=== PATIENT | male | born 1975 | race Caucasian/White ===

== ENCOUNTER 2017-06-03 13:29 | Inpatient (IN) | payer SELFPAY ==
[2017-06-03] VITALS (14 sets, daily range): BP systolic 105–125; BP diastolic 61–77; PULSE 87–108; TEMP 97.8–98
[~2017-06-03] VITALS: Ht 182.9 cm; Wt 67.9 kg
[~2017-06-03 13:29] MED LIST: DICLOXACILLIN250 MG PO; NO HOME MEDICATIONS
[2017-06-03] MEDS ORDERED: PLAVIX 75MG TAB75 MG PO (13:34)
[2017-06-03 14:09] LABS: HEMATOCRIT 49.3 % (42.0-52.0); HEMOGLOBIN 17.3 g/dl (13.5-18.0); MEAN CELL VOLUME 88 fl (80.0-100.0); MEAN CORPUSCULAR HEMOGLOBIN 31 pg (27.0-31.0); MEAN CORPUSCULAR HGB CONC 35 g/dl (33.0-37.0); PLATELET COUNT 273 K/mm3 (130-400); RED BLOOD COUNT 5.59 M/mm3 (4.20-5.60)
[2017-06-03 14:12] LABS: ADJUSTED CALCIUM 9.3 mg/dL (8.4-10.2); BILIRUBIN,TOTAL 0.8 mg/dL (0.0-1.0); CALCIUM 10.1 mg/dL (8.4-10.2); CREATININE, serum 0.92 mg/dL (0.66-1.25); TOTAL PROTEIN 8.4 gm/dL (6.4-8.2)
[2017-06-03 14:22] LABS: ADD PATHOLOGY DIFF REVIEW NO; WHITE BLOOD COUNT 19.9 K/mm3 (4.8-10.8)
[2017-06-03 14:45] LABS: BAND 12 % (0-10); NEUTROPHILS 77 % (42.0-75.2); PLATELET ESTIMATE NORMAL (NORMAL); TOTAL CELLS COUNTED 100
[2017-06-03] MEDS ORDERED: COLACE 100100 MG/CAP PO (17:39)
[2017-06-03] MEDS ORDERED: AMOXICILLIN 8751 TAB PO (17:39)
[2017-06-03] MEDS ORDERED: IBU600 MG PO (17:40)
[2017-06-03] MEDS ORDERED: PERCOCET 325 MG1 TA2 PO (17:40)
[2017-06-04 02:40] VITALS: BP 107/66; PULSE 96; TEMP 98.3
[2017-06-04 06:27] VITALS: BP 103/63; PULSE 83; TEMP 98.5
[2017-06-04 07:10] LABS: MEAN CELL VOLUME 91 fl (80.0-100.0); MEAN CORPUSCULAR HGB CONC 34 g/dl (33.0-37.0); MEAN PLATELET VOLUME 10.3 fl (7.4-10.4); PLATELET COUNT 232 K/mm3 (130-400); RED BLOOD COUNT 4.86 M/mm3 (4.20-5.60); REDCELL DISTRIBUTION WIDTH-CV 12.3 % (11.5-14.5); WHITE BLOOD COUNT 14.3 K/mm3 (4.8-10.8)
[2017-06-04 07:22] LABS: ADD PATHOLOGY DIFF REVIEW NO; HEMOGLOBIN 14.8 g/dl (13.5-18.0); MEAN CORPUSCULAR HEMOGLOBIN 30 pg (27.0-31.0)
[2017-06-04 07:23] LABS: ALBUMIN 3.9 gm/dL (3.5-5.0); CREATININE, serum 0.9 mg/dL (0.66-1.25); PHOSPHOROUS 3.2 mg/dL (2.5-4.5)
[2017-06-04 08:52] VITALS: BP 108/70; PULSE 84; TEMP 97
[2017-06-04 13:01] VITALS: BP 122/73; PULSE 76; TEMP 97.6
[2017-06-04 14:22] LABS: BAND 57 % (0-10); METAMYELOCYTE 3 % (0-0); NEUTROPHILS 33 % (42.0-75.2); TOTAL CELLS COUNTED 100
[2017-06-04 14:23] LABS: PLATELET ESTIMATE NORMAL (NORMAL)
[2017-06-04 16:18] VITALS: BP 120/74; PULSE 86; TEMP 98.8
[2017-06-04 22:21] VITALS: BP 119/78; PULSE 89; TEMP 99
[2017-06-05 06:23] VITALS: BP 132/80; PULSE 87; TEMP 98.3
[2017-06-05 08:56] VITALS: BP 121/77; PULSE 90; TEMP 97.5
[2017-06-05 12:43] LABS: CREATININE, serum 0.84 mg/dL (0.66-1.25); POTASSIUM 3.9 mmol/L (3.4-5.0)
[2017-06-05 13:40] VITALS: BP 138/87; PULSE 75; TEMP 98
[2017-06-05 22:37] VITALS: BP 110/71; PULSE 86; TEMP 99.1
[2017-06-06 05:55] VITALS: BP 123/76; PULSE 81; TEMP 98.4
[2017-06-06 09:08] VITALS: BP 122/81; PULSE 76; TEMP 98.3
[2017-06-06] MEDS ORDERED: PERCOCET 325 MG1 TA3 PO ×2 (10:52→11:08)
[2017-06-06] MEDS ORDERED: COLACE 100100 MG/CAP PO (11:08)
== END 2017-06-06 12:25 | disposition home or self-care (01) | DRG 340 ==
LOC: COL.ER 13:29 → SURG 16:22
PROVIDERS: Emergency Medicine; Surgery
PROC: 0DTJ4ZZ Resection of Appendix, Percutaneous Endoscopic Approach (ICD-10-PCS; principal; 2017-06-03 17:00)
DX: K35.2 Acute appendicitis with generalized peritonitis (principal); I25.10 Atherosclerotic heart disease of native coronary artery without angina pectoris; I10 Essential (primary) hypertension; Z87.891 Personal history of nicotine dependence; Z91.14 Patient's other noncompliance with medication regimen
CPT/HCPCS: J1100; J1170; J1650; J1885; J2270; J2405; J2543; J2704; J3010; J7030; J7050; J7120; Q9967